=== PATIENT | male | born 1985 | race Caucasian/White ===

== ENCOUNTER 2017-12-04 15:06 | Emergency (ER) | payer OTHER, MEDICAID ==
[2017-12-04 15:20] VITALS: BP 120/74; RESP 14
[2017-12-04] MEDS ORDERED: ACETAMINOPHEN 325 MG TAB PO ONE (15:41)
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
[2017-12-04 16:24] VITALS: O2SAT 95
[2017-12-04 16:25] VITALS: PULSE 95
== END 2017-12-04 16:24 | disposition home or self-care (01) ==
LOC: CED 15:06
DX: S09.90XA Unspecified injury of head, initial encounter (principal); S29.012A Strain of muscle and tendon of back wall of thorax, initial encounter; F17.200 Nicotine dependence, unspecified, uncomplicated; V59.59XA Passenger in pick-up truck or van injured in collision with other motor vehicles in traffic accident, initial encounter; Y92.410 Unspecified street and highway as the place of occurrence of the external cause
CPT/HCPCS: 72070-PO; 73030-PO

== ENCOUNTER 2018-01-09 12:27 | Emergency (ER) | payer MEDICAID ==
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
--- NOTE | 2018-01-09 12:45 | CPEKG ---
Heart Rate: 85 RR Interval: 706 P-R Interval: 160 QRSD Interval: 84 QT Interval: 336 QTC Interval: 400 P Bailey: 46 QRS Bailey: 55 T Wave Bailey: 43 EKG Severity - NORMAL ECG - EKG Impression: SINUS RHYTHM Electronically Signed By: Morris Andrews 09-Jan-2018 12:46:53
[2018-01-09 13:04] LABS: PLATELET COUNT 338 10^3/uL (150-400)
[2018-01-09 14:17] VITALS: BP 124/62
== END 2018-01-09 14:16 | disposition home or self-care (01) ==
LOC: CED 12:27
DX: R60.0 Localized edema (principal); F17.200 Nicotine dependence, unspecified, uncomplicated
CPT/HCPCS: 80053-PO; 84443-PO; 85025-PO

== ENCOUNTER → 2018-01-30 | Outpatient (CLI) | payer MEDICAID | LOC: CIMAGING 10:15 | PROVIDERS: ATTEND Family Medicine | DX: R60.0 Localized edema (principal); K76.0 Fatty (change of) liver, not elsewhere classified | CPT/HCPCS: 76700-PO ==